=== PATIENT | female | born 1995 | race Caucasian/White ===

== ENCOUNTER 2022-12-23 08:59 | Emergency (ER) | payer BC ==
[~2022-12-23] VITALS: Ht 157.5 cm; Wt 49.9 kg
[2022-12-23 09:09] VITALS: BP 129/84
--- NOTE | 2022-12-23 09:17 | NUR ---
PT AMBULATED TO ER BED 6
--- NOTE | 2022-12-23 09:39 | NUR ---
Dr. Renee evaluating pt with bedside Ultrasound
--- NOTE | 2022-12-23 09:41 | NUR ---
Note ubaldoone in EDM - 12/23/22 at 0955 by [facility] 22 y/o F BIB self from home c/o mid abdominal pain x 2 weeks. Patient A&Ox4, ambulatory, states palpable "ball" to mid abdomen region s/p lifting/moving heavy furniture two weeks ago. Pt denies pain, dysuria, n/v/d, constipation, vaginal bleeding, vaginal discharge, hernia hx. Bed locked in lowest position, side rails x 1. PMH/Sx/Meds: Denies NKDA
--- NOTE | 2022-12-23 09:52 | NUR ---
Patient discharged with v/s stable. Written and verbal after care instructions given and explained. Patient verbalized understanding. Ambulatory with steady gait. All questions addressed prior to discharge. Advised to follow up with PMD.
== END 2022-12-23 09:52 | disposition home or self-care (01) ==
LOC: EDBD 08:59 → MED 08:59
DX: L72.0 Epidermal cyst (principal)
CPT/HCPCS: 99284